=== PATIENT | female | born 1950 | race Caucasian/White ===

== ENCOUNTER 2021-02-08 23:54 | Emergency (ER) | payer OTHER, MEDICARE ==
--- OUTSIDE RECORDS SUMMARY | 2021-02-08 23:55 | XMS REPORT | Continuity of Care Document ---
:1950 Author Organization [facility] t Address [address] [place] [address] Care Team Providers Name Role Phone Unavailable Unavailable Unavailable Payers Payer Name Policy Type Policy Number Effective Date Expiration Date S ource Problems This patient has no known problems. Allergies, Adverse Reactions, Alerts Allergy Allergy Status Severity Reaction(s) Onset Inactive Treating Comm ents Source Name Type Date Date Clinician latex DA Active MO 2019-06 [facility] 0-12 Clear 00:00: [place] [address] [place] [address] Medications This patient has no known medications. Procedures This patient has no known procedures. Encounters Start End Encounter Admission Attending Care Care Encounter Source Date/Time Date/Time Type Type Clinicians Facility Department ID 2021-01-10 2021-01-10 Outpatient MHSE [id number] 10:21:00 10:21:00 [facility] 2021-01-10 2021-01-10 Outpatient MHBL [id number] MHBL 08:42:00 08:42:00 Results Test Description Test Time Test Comments Results Result Comments Source Novel Coronavirus 2019 Inhouse 2020-04-06 10:54:00 Test Item Value Reference Range Interpretation Comme nts Novel Coronavirus 2018 Negative Negative Posit vandana results are indicative of the Inhouse (test code = presenc e [id number] RNA, clinical COVNONPUI) correlation wit h patient historyand other diagnosti c information is necessary to de terminepatient infection status. Positiv e results do not rule outbacterial in fection or co-infection with other viru ses. Negative results do not preclude SA RS-CoV-2 infection andshould not b e used as the sole basis for patient man agementdecisions. Negative result s must be combined with otherclinical o bservations, patient history, and ep idemiologicalinformation. Detection of SA RS-CoV-2 RNA may be affected bysamp le collection methods, storage conditi ons, and/or stageof infection. Teri l RNA mutations, vaccinations, a ntiviraltherapeutics, antibiotics, ch emotherapeutic orimmunosuppres karin drugs have not been evaluated for e ffectson detection. Results are for the identification of SARS-CoV-2 RNA usingthe [employer]. System under th e FDA Emergency UseAuthorizatio n. The testing is performed by fred rsonneltrained in the procedures for the [employer]000 moleculardiagno stic SARS-CoV-2 assay in vitro. Novel Coronavirus 2018 [id number] 10:54:00 Test Item Value Reference Range Interpretation Comments Novel Coronavirus Negative Negative Positive r esults are 2019 Inhouse (test indicativ e of the presence code = COVNONPUI) ofSARS-CoV -2 RNA, clinical correlation wit h patient historyand othe r diagnostic info rmation is necessary to determinepatien t infection status. Positiv e results do not rule out bacterial infection or co -infection with other viru ses. Negative result s do not preclude SARS-C oV-2 infection andsh ould not be used as the ja e basis for patient managementdecis ions. Negative result s must be combined with otherclinical observations, p atient history, and epidemiological information . Detection of SARS-CoV-2 RNA may be affe cted bysample collec tion methods, storag e conditions, and /or stageof infection. Teri l RNA mutations, vacc inations, antiviraltherap eutics, antibiotics, chemotherapeuti c orimmunosuppres karin drugs have not been e valuated for effectson d etection. Results are for the identification of SARS-CoV-2 RNA usingthe [employer] Sy stem under the FDA Emergen cy UseAuthorizatio n. The testing is perf ormed by michael kelley in the procedures for the Koehler M2000 molecular diagnostic SARS-CoV-2 assa y in vitro. - MRI LW JNT W/O CONT [id number] 15:57:00 Patient Name: CHRISTOPHER PARISH Unit No: [id number] EXAMS: CPT CODE: [id number] MRI LW JNT W/[place] [address] TECHNIQUE: Multiplanar, multisequence MRI of the left knee without contrast. COMPARISON: None available. FINDINGS: Menisci: Horizontaltear of the medial meniscus is suspected extending from the posterior horn to the meniscal body. There is subtle increased signal of the free edge of the lateral meniscal body withoutdefinite tear. Ligament and tendons: ACL and PCL are intact. ACL and PCL are intact. Extensor mechanism is unremarkable. Cartilage/ bone: Severe patellofemoral cartilage degeneration is seen throughout the patellofemoral compartment, predominantly within the medial compartment. A full-thickness chondral fissure extends into the lateral patellar facet. Moderate medial compartment cartilage degeneration reaches high-grade peripherally with prominent subchondral edema of the medial femoral condyle. There is also moderate lateral compartment cartilage degeneration with a large button osteophyte of the lateral femoral condyle measuring 14 mm in AP dimension. No acute fracture. Other: Small joint effusion and popliteal cyst are visualized. IMPRESSION: 1. Suspected horizontal tear of the posterior horn and body of the medial meniscus. 2. Tricompartmental cartilage degeneration, most severely involving the patellofemoral compartment. 3. Small joint effusion and popliteal cyst. at 1557 Reported andsigned by: Elliot Harris M.D. CC: Regan Rodriguez MD Technologist: Piotr Montalvo(R) Transcribed D/ (2757) David MCMAHON [facility] NAME: CHRISTOPHER PARISH [address] [facility] PHYS: Regan Espinosa : 1950 AGE: 69 SEX: F [place], [place] [address] LOC: Y.MRI PHONE #: [phone] EXAM DATE: 04/01/2020 STATUS: REG CLI FAX #: [phone] RAD #: D/C DT PAGE 1 Signed Report Patient Name: Anita PARISH No: [id number] EXAMS: CPT CODE: [id number] MRI LW JNT W/[place] [address] <Continued> Orig Print D/T: S: 04/01/2020 (1600) [facility] NAME: CHRISTOPHER PARISH [address] [place] [address] PHYS: Regan Espinosa : 1950 AGE:69 SEX: F [place] [address] LOC: Y.MRI PHONE #: [phone] EXAM DATE: 04/01/2020 STATUS: REG CLI FAX #: [phone] RAD #: D/C DT PAGE 2 Signed Report- XR L-SPINE W/BEND [id number] 14:47:00 Patient Name: CHRISTOPHER PARISH Unit No: [id number] EXAMS: CPT CODE: [id number] XR L-SPINE W/BEND VIEW 79676 LUMBAR SPINE 5 VIEWS PLUS FLEXION AND EXTENSION COMMENT: COMPARISON: No prior exams available. There is a scoliosis convex right. Vertebral body heights are maintained. Interspace narrowing and endplate degenerative change is present from L3 to S1. There is no evidence for abnormal motion with flexion and extension. at 1447 Reported and signed by: Mehdi Lees MD CC: Isreal Price MD Technologist: Tiffanie Pickard RT.(R) Transcribed D/ (1768) Bing [facility] [place] [facility] NAME: CHRISTOPHER PARISH [address] [place] [address] PHYS: ADDIUD - sIreal Price MD :1950 AGE: 68 SEX: F [place] [address] LOC: Y.MRI PHONE #: [phone] EXAM DATE: 03/06/2019 STATUS: DEP CLI FAX #: [phone] RAD #: D/C DT PAGE 1 Signed Report Patient Name: CHRISTOPHER PARISH Unit No: [id number] EXAMS: CPT CODE: [id number] XR L-SPINE W/BEND VIEW 82389 <Continued> Orig Print D/T: S: 03/07/2019 (1450) [facility] [place] [facility] NAME: CHRISTOPHER PARISH [address] [facility] PHYS: DOCUD - Doctor,Isreal Newberry MD : 1950 AGE: 68 SEX: F [place], [place] [address] LOC: Y.MRI PHONE #: [phone] EXAM DATE: 03/06/2019 STATUS: DEP CLI FAX #: [phone] RAD #: D/C DT PAGE 2 Signed Report- MRI L-SPINE W/O CONT 2019-03-07 08:57:00 Patient Name: CHRISTOPHER PARISH Unit No: [id number] EXAMS: CPT CODE: [id number] MRI L-SPINE W/O CONT 74918 DIAGNOSIS: 1. At L1-2 there is no evidence for disc bulge or herniation, bony canal or foraminal stenosis. 2. At L2-3 there is no evidence for disc bulge or herniation, bony canal or foraminal stenosis. 3. At L3-4 there is no evidence for discbulge or herniation. There is mild narrowing of the central canal due to facet hypertrophic and degenerative change. 4. At L4-5 there is no evidence for disc bulge or herniation. There is mild narrowing of the canal and foramina with facet and ligamentum flavum hypertrophic and degenerative change. 5. At L5-S1 there is no evidence for disc bulge or herniation, bony canal or foraminal stenosis. COMMENT: COMPARISON: No prior exams available. Scans were performed in the sagittal and axial planes utilizing T1, T2 and inversion recovery images. There is a small hemangioma of bone in L1. All discs are desiccated. There is a mild upper lumbar scoliosis convex right. Disc configurations are as described. Spondylitic changes are as noted. The conus is in the expected location. The description these findings assumes a normal count of 5 lumbar type vertebra. at 0857 Reported and signed by: Mehdi Lees MD CC: Isreal Price MD Technologist: CHANTE DUTTA MRI Transcribed D/ (0857) Bing [facility] [place] [facility] NAME: CHRISTOPHER PARISH [address] [facility] PHYS : Isreal Adams MD : 1950 AGE: 68 SEX: F [place] [address] LOC: Y.MRI PHONE #: [phone] EXAM DATE: 03/06/2019 STATUS: DEP CLI FAX #: [phone] RAD #: D/C DT PAGE 1 Signed Report Patient Name: CHRISTOPHER PARISH Unit No: [id number] EXAMS: CPT CODE: [id number] MRI L-SPINE W/O CONT 10594 <Continued> Orig Print D/T: S: 03/07/2019 (0900) [facility] [place] [facility] NAME: CHRISTOPHER PARISH [address] [place] [address] PHYS: Isreal Adams MD : 1950 AGE: 68 SEX: F [place] [address] LOC: Y.MRI PHONE #: [phone] EXAM DATE: 03/06/2019 STATUS: DEP CLI FAX #: [phone] RAD #: D/C DT PAGE 2 Signed Report
[2021-02-09] MEDS ORDERED: NA CHLORIDE 0.9% 1,000 ML ONE (02:32)
[2021-02-09] MEDS ORDERED: KETOROLAC 30 MG/ML INJ ONE (02:32)
[2021-02-09] MEDS ORDERED: DIPHENHYDRAMINE 50 MG/ML VIAL ONE (02:32)
[2021-02-09] MEDS ORDERED: METOCLOPRAMIDE 10 MG/2mL INJ ONE (02:32)
--- NOTE | 2021-02-09 02:47 | ER ---
Nurse's Notes [facility] Name: Meg Man Age: 70 yrs Sex: Female : 1950 Arrival Date: 02/08/2021 Time: 23:56 Bed 26 Private MD: Diagnosis: Headache Presentation: 02/09 01:39 Chief complaint: Patient states: she had a fall last year with a TBI and she is seeing bb a neurologist but it has caused severe headaches which she is having now since 1999 and nothing is helping. Coronavirus screen: At this time, the client does not indicate any symptoms associated with coronavirus-19. Ebola Screen: No symptoms or risks identified at this time. Initial Sepsis Screen: Does the patient meet any 2 criteria? No. Patient's initial sepsis screen is negative. Does the patient have a suspected source of infection? No. Patient's initial sepsis screen is negative. Risk Assessment: Do you want to hurt yourself or someone else? Patient reports no desire to harm self or others. Onset of symptoms was February 08, 2021. 01:39 Method Of Arrival: Ambulatory 01:39 Acuity: ARCENIO 3 Triage Assessment: 01:42 Headache History: The patient has had previous headaches and this one is similar to bb previous episodes. General: Appears in no apparent distress. uncomfortable, Behavior is cooperative, anxious. Pain: Complains of pain in headache Pain currently is 8 out of 10 on a pain scale. Pain began suddenly, Also complains of sleeplessness. Neuro: Level of Consciousness is awake, alert, obeys commands, Oriented to person, place, time, situation. Cardiovascular: Capillary refill < 3 seconds Patient's skin is warm and dry. Respiratory: Respiratory effort is unlabored. GI: No signs and/or symptoms were reported involving the gastrointestinal system. Derm: Skin is pink, warm \T\ dry. Musculoskeletal: Circulation, motion, and sensation intact. Historical: - Allergies: :42 No Known Allergies; bb - Home Meds: :42 ubrelvy [Active]; levothyroxine oral [Active]; pantoprazole oral [Active]; duloxetine bb oral [Active]; - PMHx: 01:42 GERD; hiatal hernia; Hypothyroidism; Depressive disorder; bb - PSHx: 01:42 foot surgery; L knee; L shoulder replacement; Tonsillectomy; cervical fusion; deviated bb septum; - Immunization history:: Adult Immunizations up to date, Client reports receiving the 2nd dose of the Covid vaccine. - Social history:: Smoking status: Patient denies any tobacco usage or history of. Screenin:30 Abuse screen: Denies threats or abuse. Nutritional screening: No deficits noted. bb Tuberculosis screening: No symptoms or risk factors identified. Fall Risk None identified. Assessment: 02:30 Reassessment: No changes from previously documented assessment. Patient is alert, bb oriented x 3, equal unlabored respirations, skin warm/dry/pink. see triage assessment. 03:57 Reassessment: Patient is alert, oriented x 3, equal unlabored respirations, skin bb warm/dry/pink. pt verbalized understanding of and agrees to plan of care discharge instructions given pt ambulated with steady gait to exit Patient states feeling better. Patient states symptoms have improved. Vital Signs: 01:39 BP 153 / 92; Pulse 84; Resp 16 S; Temp 98.7(O); Pulse Ox 100% on R/A; Weight 104.33 kg bb (R); Height 5 ft. 8 in. (172.72 cm) (R); Pain 10/10; 03:58 BP 147 / 80; Pulse 78; Resp 16 S; Pulse Ox 95% on R/A; Pain 0/10; bb 01:39 Body Mass Index 34.97 (104.33 kg, 172.72 cm) bb Richard Coma Score: 02:11 Eye Response: spontaneous(4). Verbal Response: oriented(5). Motor Response: obeys kb commands(6). Total: 15. ED Course: 02/08 23:56 Patient arrived in ED. bp1 02/09 01:42 Triage completed. bb 01:42 Arm band placed on Patient placed in waiting room, Patient notified of wait time. bb 01:53 Paulina Tucker FNP-C [facility]. kb 01:53 Rudy Foley MD is Attending Physician. kb 02:02 Inserted saline lock: 20 gauge in right wrist, using aseptic technique. Missed bb attempt(s): 20 gauge in right hand. Bleeding controlled, band aid applied, catheter tip intact. 02:29 Jeannine Zelaya RN is Primary Nurse. bb 02:30 Patient has correct armband on for positive identification. Call light in reach. bb 03:58 No provider procedures requiring assistance completed. IV discontinued, intact, bb bleeding controlled, No redness/swelling at site. Pressure dressing applied. Administered Medications: 02:19 Drug: NS 0.9% 1000 ml Route: IV; Rate: 1000 ml; Site: right wrist; bb 03:30 Follow up: IV Status: Completed infusion bb 02:19 Drug: Ketorolac 30 mg Route: IVP; Site: right wrist; bb 03:48 Follow up: Response: No adverse reaction; Marked relief of symptoms bb 02:20 Drug: Benadryl (diphenhydrAMINE) 12.5 mg Route: IVP; Site: right wrist; bb 03:48 Follow up: Response: No adverse reaction; Marked relief of symptoms bb 02:20 Drug: Reglan (metoCLOPramide) 10 mg Route: IVP; Site: right wrist; bb 03:48 Follow up: Response: No adverse reaction; Marked relief of symptoms bb 03:47 Drug: [place] (HYDROcodone-acetaminophen) (7.5 mg-325 mg) 1 tabs {Note: RASS 0.} Route: bb PO; 03:57 Follow up: Response: Medication administered at discharge. bb Outcome: 02:47 Discharge ordered by . kb 03:59 Discharged to home ambulatory, with family. bb 03:59 Condition: stable 03:59 Discharge instructions given to patient, Instructed on discharge instructions, follow up and referral plans. Demonstrated understanding of instructions, follow-up care. 03:59 Patient left the ED. bb Signatures: Paulina Tucker, LIZETTE WEBB-Jeannine Isidro RN RN bb iTa Jones bp1
--- NOTE | 2021-02-09 02:48 | EDPHYS ---
Physician Documentation [facility] Name: Meg Man Age: 70 yrs Sex: Female : 1950 Arrival Date: 02/08/2021 Time: 23:56 Bed 26 Private MD: LORIN Physician Rudy Foley HPI: 02/09 02:11 This 70 yrs old Female presents to ER via Ambulatory with complaints of kb Headache. 02:15 The patient complains of pain to the top of head and right mosque. The patient kb describes the headache as constant. Onset: The symptoms/episode began/occurred yesterday. Associated signs and symptoms: Pertinent positives: nausea. Severity of symptoms: At its worst the pain was moderate, in the emergency department the pain is unchanged. Headache History: The patient has had previous headaches and this one is similar to previous episodes. The symptoms are alleviated by nothing. the symptoms are aggravated by nothing. The patient has experienced similar episodes in the past. The patient has not recently seen a physician. Pt reports she fell 1 year ago and got a concussion. States she has been diagnosed with postconcussive syndrome. Reports headaches approximately once per month similar to the one she has now that she normally takes a migraine medication for and it goes away but today's did not. States pain is always to right mosque and top of head. Patient denies any changes in the characteristics of this headache in comparison to previous headaches.. Historical: - Allergies: 01:42 No Known Allergies; bb - Home Meds: 01:42 ubrelvy [Active]; levothyroxine oral [Active]; pantoprazole oral [Active]; duloxetine bb oral [Active]; - PMHx: 01:42 GERD; hiatal hernia; Hypothyroidism; Depressive disorder; bb - PSHx: 01:42 foot surgery; L knee; L shoulder replacement; Tonsillectomy; cervical fusion; deviated bb septum; - Immunization history:: Adult Immunizations up to date, Client reports receiving the 2nd dose of the Covid vaccine. - Social history:: Smoking status: Patient denies any tobacco usage or history of. ROS: 02:12 Constitutional: Negative for fever, chills, and weight loss. kb 02:12 Abdomen/GI: Positive for nausea. 02:12 Neuro: Positive for headache. 02:12 All other systems are negative. Exam: 02:12 Constitutional: This is a well developed, well nourished patient who is awake, alert, kb and in no acute distress. Head/Face: Normocephalic, atraumatic. Eyes: Pupils equal round and reactive to light, extra-ocular motions intact. Lids and lashes normal. Conjunctiva and sclera are non-icteric and not injected. Cornea within normal limits. Periorbital areas with no swelling, redness, or edema. ENT: Moist Mucous membranes Respiratory: Respirations even and unlabored. No increased work of breathing, no retractions or nasal flaring. Skin: Warm, dry with normal turgor. Normal color. MS/ Extremity: Pulses equal, no cyanosis. Neurovascular intact. Full, normal range of motion. Neuro: Awake and alert, GCS 15, oriented to person, place, time, and situation. Moves all extremities. Normal gait. Psych: Awake, alert, with orientation to person, place and time. Behavior, mood, and affect are within normal limits. Vital Signs: 01:39 BP 153 / 92; Pulse 84; Resp 16 S; Temp 98.7(O); Pulse Ox 100% on R/A; Weight 104.33 kg bb (R); Height 5 ft. 8 in. (172.72 cm) (R); Pain 10/10; 03:58 BP 147 / 80; Pulse 78; Resp 16 S; Pulse Ox 95% on R/A; Pain 0/10; bb 01:39 Body Mass Index 34.97 (104.33 kg, 172.72 cm) bb [place] Coma Score: 02:11 Eye Response: spontaneous(4). Verbal Response: oriented(5). Motor Response: obeys kb commands(6). Total: 15. MDM: 01:53 Patient medically screened. kb 02:11 Data reviewed: vital signs, nurses notes. Data interpreted: Pulse oximetry: on room air kb is 100 %. Interpretation: normal. Counseling: I had a detailed discussion with the patient and/or guardian regarding: the historical points, exam findings, and any diagnostic results supporting the discharge/admit diagnosis, the need for outpatient follow up, a neurologist, to return to the emergency department if symptoms worsen or persist or if there are any questions or concerns that arise at home. 02:46 Response to treatment: the patient's symptoms have markedly improved after treatment. kb 02/09 01:55 Order name: IV Start; Complete Time: 02:02 kb Administered Medications: 02:19 Drug: NS 0.9% 1000 ml Route: IV; Rate: 1000 ml; Site: right wrist; bb 03:30 Follow up: IV Status: Completed infusion bb 02:19 Drug: Ketorolac 30 mg Route: IVP; Site: right wrist; bb 03:48 Follow up: Response: No adverse reaction; Marked relief of symptoms bb 02:20 Drug: Benadryl (diphenhydrAMINE) 12.5 mg Route: IVP; Site: right wrist; bb 03:48 Follow up: Response: No adverse reaction; Marked relief of symptoms bb 02:20 Drug: Reglan (metoCLOPramide) 10 mg Route: IVP; Site: right wrist; bb 03:48 Follow up: Response: No adverse reaction; Marked relief of symptoms bb 03:47 Drug: [place] (HYDROcodone-acetaminophen) (7.5 mg-325 mg) 1 tabs {Note: RASS 0.} Route: bb PO; 03:57 Follow up: Response: Medication administered at discharge. bb Disposition: 07:37 Co-signature as Attending Physician, Rudy Foley MD I agree with the assessment and milla plan of care. Disposition Summary: 02/09/21 02:47 Discharge Ordered Location: Home kb Condition: Stable kb Diagnosis - Headache kb Followup: kb - With: Emergency Department - When: As needed - Reason: Worsening of condition Followup: kb - With: Private Physician - When: 2 - 3 days - Reason: Recheck today's complaints, Continuance of care, Re-evaluation by your physician Discharge Instructions: - Discharge Summary Sheet kb - Post-Concussion Syndrome, [id number] kb Forms: - Medication Reconciliation Form kb - Thank You Letter kb - Antibiotic Education kb - Prescription Opioid Use kb Signatures: Paulina Tucker, TILE LAYER HELPER-C TILE LAYER HELPER-Rudy Joshi MD MD cha Ballard, Brenda, RN RN bb
[2021-02-09 04:08] VITALS: TEMP 98.7
[2021-02-09 04:10] VITALS: BP 147/80; O2SAT 95
[2021-02-09] MEDS ORDERED: HYDROCODONE/APAP 7.5/325 MG TAB ONE (04:13)
== END 2021-02-09 03:59 | disposition home or self-care (01) ==
LOC: ER 23:54
DX: R51.9 Headache, unspecified (principal); E03.9 Hypothyroidism, unspecified; F32.9 Major depressive disorder, single episode, unspecified
CPT/HCPCS: 96361; 96375; 96374; 99283; J2765; J1200; J7030

== ENCOUNTER → 2023-08-09 | Emergency (ER) | payer OTHER, MEDICARE ==
[~2023-08-09] MED LIST: LOPERAMIDE HCL 2 MG CAPSULE ONE; NA CHLORIDE 0.9% 1,000 ML ONE; ONDANSETRON 4 MG/2 ML VIAL ONE; hydrOXYzine HCL 25 MG TAB ONE
[2023-08-09 16:59] LABS: Absolute Lymphocytes (CBC) 1.3 K/uL (0.7-4.9); Hematocrit 45.7 % (36.0-45.0); Lymphocytes % 17.9 % (15.3-44.8); MCV 87.9 fL (80-100); MPV 9.3 fL (7.6-11.3); Platelets 222 thou/uL (152-406)
[2023-08-09 17:21] LABS: Specific Gravity 1.021 (1.005-1.030); Urine Bacteria <20 /HPF (<20); Urine Bilirubin NEGATIVE (Negative); Urine Blood Negative (Negative); Urine Clarity Extremely Turbid (Clear); Urine Color Yellow (Yellow); Urine Crystals Unidentified Few /HPF (None Seen); Urine Glucose NEGATIVE (Negative); Urine Mucus Slight /HPF (None Seen); Urine Protein TRACE (Negative); Urine RBC <5 /HPF (None Seen); Urine Urobilinogen Normal (Normal); Urine pH 5.5 (5.0-7.0)
[2023-08-09 18:31] LABS: Potassium 3.9 mEq/L (3.5-5.1)
[2023-08-09 18:32] LABS: Albumin 2.9 g/dL (3.4-5.0); Bilirubin Total 0.5 mg/dL (0.2-1.0); Protein, Total 6.8 g/dL (6.4-8.2)
--- NOTE | 2023-08-09 19:12 | RAD REPORT ---
EXAM DESCRIPTION: CTAbdomen Pelvis W Contrast - 08/09/2023 7:04 pm CLINICAL HISTORY: Abdominal pain. ABD PAIN COMPARISON: Abdomen Pelvis W Contrast dated 04/06/2021 TECHNIQUE: Biphasic CT imaging of the abdomen and pelvis was performed with 100 ml non-ionic IV cont rast. All CT scans are performed using dose optimization technique as appropriate and may include automated exposure control or mA/KV adjustment according to patient size. FINDINGS: The lung bases are clear. The liver, spleen, pancreas, adrenal glands and kidneys are within normal limits. No bowel obstruction, free air, free fluid or abscess. The appendix is normal. No evidence of signi ficant lymphadenopathy. Right total hip arthroplasty. IMPRESSION: No acute intra-abdominal or pelvic finding.
--- NOTE | 2023-08-09 20:23 | ER ---
Nurse's Notes [facility] Name: Meg Man Age: 72 yrs Sex: Female : 1950 Arrival Date: 08/09/2023 Time: 14:09 Bed 14 Private MD: Diagnosis: Diarrhea, unspecified Presentation: 08/09 14:26 Chief complaint: Patient states: N/V/D for 4 days. + itching all over, Benadryl not ll1 helping. No fever. Worried about having Giardia again. Coronavirus screen: Client denies travel out of the [place] in the last 14 days. At this time, the client does not indicate any symptoms associated with coronavirus-19. Ebola Screen: Patient denies travel to an Ebola-affected area in the 21 days before illness onset. Initial Sepsis Screen: Does the patient meet any 2 criteria? No. Patient's initial sepsis screen is negative. Does the patient have a suspected source of infection? No. Patient's initial sepsis screen is negative. Risk Assessment: Do you want to hurt yourself or someone else? Patient reports no desire to harm self or others. Onset of symptoms was August 06, 2023. 14:26 Method Of Arrival: Wheelchair ll1 14:26 Acuity: ARCENIO 3 ll1 Triage Assessment: 14:28 General: Appears uncomfortable, ill, Behavior is calm, cooperative, appropriate for ll1 age. Respiratory: Reports shortness of breath. GI: Reports diarrhea, nausea, vomiting. 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 - Social history:: Smoking status: Patient denies any tobacco usage or history of. Screenin:25 [facility] ED Fall Risk Assessment (Adult) History of falling in the last 3 months, rs5 including since admission No falls in past 3 months (0 pts) Confusion or Disorientation No (0 pts) Intoxicated or Sedated No (0 pts) Impaired Gait No (0 pts) Mobility Assist Device Used No (0 pt) Altered Elimination No (0 pt) Score/Fall Risk Level 0 - 2 = Low Risk Oriented to surroundings, Maintained a safe environment. Abuse screen: Denies threats or abuse. Nutritional screening: No deficits noted. Tuberculosis screening: No symptoms or risk factors identified. Assessment: 14:25 General: Appears in no apparent distress. uncomfortable, Behavior is calm, cooperative. rs5 Pain: Complains of pain in abdomen Pain does not radiate. Pain currently is 5 out of 10 on a pain scale. Quality of pain is described as aching, Is continuous. 14:25 Neuro: Level of Consciousness is awake, alert, obeys commands, Oriented to person, rs5 place, time, situation. Cardiovascular: Patient's skin is warm and dry. Rhythm is regular. Respiratory: Airway is patent Respiratory effort is even, unlabored, Respiratory pattern is regular, symmetrical. GI: Abdomen is round non-distended, Bowel sounds present X 4 quads. Abd is soft and non tender. : No signs and/or symptoms were reported regarding the genitourinary system. EENT: No signs and/or symptoms were reported regarding the EENT system. Derm: Skin is intact, Skin is pink, warm \T\ dry. Musculoskeletal: Range of motion: intact in all extremities. 16:16 Reassessment: No changes from previously documented assessment. Patient and/or family rs5 updated on plan of care and expected duration. Pain level reassessed. 16:16 GI: Patient currently denies nausea. rs5 19:17 Reassessment: Patient is alert, oriented x 3, equal unlabored respirations, skin jj7 warm/dry/pink. PT BACK IN ROOM FROM CT. ASSUMED CARE OF PT. PT LYING IN BED. STATES THE ABD IS SLOWLY STARTING TO COME BACK. NO NEEDS AT THIS TIME. VS STABLE. FAMILY AT BEDSIDE. CALL STOLL IN REACH. Vital Signs: 14:26 BP 120 / 78; Pulse 93; Resp 17; Temp 97.4; Pulse Ox 99% on R/A; ll1 19:17 BP 103 / 56; Pulse 105; Resp 19; Pulse Ox 99% ; jj7 20:15 BP 102 / 56; Pulse 86; Resp 17; Pulse Ox 95% ; jj7 ED Course: 14:11 Patient arrived in ED. rg4 14:13 Arm band placed on. ll1 14:17 Olga Rodriguez PA-C is PHCP. sb4 14:17 Calixto Faith MD is Attending Physician. sb4 14:25 Patient has correct armband on for positive identification. Bed in low position. Call rs5 light in reach. Side rails up X2. 14:25 No provider procedures requiring assistance completed. rs5 14:28 Triage completed. ll1 16:16 Patient placed in an exam room, on a stretcher. iw 16:18 Angel Luis Lowe, RN is Primary Nurse. rs5 19:06 CT Abd/Pelvis - IV Contrast Only In Process Unspecified. EDMS 20:37 IV discontinued, intact, bleeding controlled, No redness/swelling at site. Pressure jj7 dressing applied. Administered Medications: 16:30 Drug: NS 0.9% IV 1000 ml IV at 1 bolus Per protocol; 1000 mL bolus Route: IV; Rate: 1 rs5 bolus; Site: left hand; 20:37 Follow up: IV Status: Completed infusion jj7 18:50 Drug: Ondansetron IVP 4 mg IVP once; over 2 minutes Route: IVP; Site: right antecubital;rs5 20:50 Follow up: Response: Nausea is decreased jj7 20:10 Drug: NS 0.9% IV 1000 ml IV at 1 bolus Per protocol; 1000 mL bolus Route: IV; Rate: 1 jj7 bolus; Site: left antecubital; 20:37 Follow up: IV Status: Completed infusion; IV Intake: 300ml jj7 20:11 Drug: Loperamide PO 4 mg PO once Route: PO; jj7 20:51 Follow up: Response: No adverse reaction jj7 20:37 Drug: hydrOXYzine PO 50 mg PO once Route: PO; jj7 20:51 Follow up: Response: No adverse reaction jj7 Medication: 14:25 VIS not applicable for this client. rs5 Intake: 20:37 IV: 300ml; Total: 300ml. jj7 Outcome: 20:23 Discharge ordered by . sb4 20:37 Discharged to home ambulatory, with family, jj7 20:37 Condition: improved 20:37 Discharge instructions given to patient, family, Instructed on discharge instructions, medication usage, DIET Demonstrated understanding of instructions, medications, DIET Prescriptions given X 3, 20:55 Patient left the ED. jj7 Signatures: Dispatcher [employer] EDRima Leary RN RN iw Pauline Cisneros rg4 Jada Velez RN RN ll1 Armando Galo RN RN jj7 Olga Rodriguez, PAVinhC PA-C sb4 Angel Luis Lowe, RN RN rs5 Corrections: (The following items were deleted from the chart) 14:29 14:26 Chief complaint: Patient states: N/V/D for 4 days. + itching all over. No fever ll1 ll1 18:59 16:16 Reassessment: No changes from previously documented assessment. Patient and/or rs5 family updated on plan of care and expected duration. Pain level reassessed. iw
--- NOTE | 2023-08-09 20:24 | EDPHYS ---
Physician Documentation [facility] Name: Meg Man Age: 72 yrs Sex: Female : 1950 Arrival Date: 08/09/2023 Time: 14:09 Bed 14 Private MD: ED Physician Calixto Faith HPI: 08/09 14:36 This 72 yrs old Female presents to ER via Wheelchair with complaints of Diarrhea. sb4 14:36 Patient reports diarrhea for 3 days. She states that it feels exactly like when she had sb4 giardia at 37 years ago. She additionally complains of itching all over her body without significant improvement with Benadryl. She denies any fever. Does endorse some vomiting and some abdominal pain, though not as severe as her diarrhea. She describes her diarrhea as watery, malodorous and a ordonez color. No blood in her diarrhea. She denies any recent changes in medication. She was started on metronidazole by her PCP yesterday. She has been on semaglutide, her dose was doubled 5 days ago. 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 - Social history:: Smoking status: Patient denies any tobacco usage or history of. ROS: 14:36 Constitutional: Negative for fever, chills, and weight loss, sb4 14:36 Abdomen/GI: Positive for nausea, vomiting, and diarrhea, 14:36 Skin: Positive for itching, 14:36 All other systems are negative, Exam: 14:36 Constitutional: This is a well developed, well nourished patient who is awake, alert, sb4 and in no acute distress. Head/Face: Normocephalic, atraumatic. Eyes: Extra-ocular motions intact. Periorbital areas with no swelling, redness, or edema. ENT: Mucous membranes moist. Cardiovascular: Regular rate and rhythm with a normal S1 and S2. Respiratory: Lungs have equal breath sounds bilaterally, clear to auscultation and percussion. No rales, rhonchi or wheezes noted. No increased work of breathing, no retractions or nasal flaring. Abdomen/GI: Soft, non-tender, no distension. Skin: Warm, dry with normal turgor. Normal color with no rashes, no lesions, and no evidence of cellulitis. MS/ Extremity: Pulses equal, no cyanosis. Neurovascular intact. Full, normal range of motion. Neuro: Awake and alert, GCS 15, oriented to person, place, time, and situation. Motor strength 5/5 in all extremities. Sensory grossly intact. Vital Signs: 14:26 BP 120 / 78; Pulse 93; Resp 17; Temp 97.4; Pulse Ox 99% on R/A; ll1 19:17 BP 103 / 56; Pulse 105; Resp 19; Pulse Ox 99% ; jj7 20:15 BP 102 / 56; Pulse 86; Resp 17; Pulse Ox 95% ; jj7 MDM: 14:25 Patient medically screened. sb4 14:36 Differential diagnosis: gastroenteritis, colitis, parasitic infection, diverticulitis. sb4 20:23 Data reviewed: vital signs, nurses notes, lab test result(s), radiologic studies, and sb4 as a result, I will discharge patient. Consideration of Admission/Observation Escalation of care including admission/observation considered. Historians other than the Patient: Spouse/Significant Other: . Counseling: I had a detailed discussion with the patient and/or guardian regarding the historical points, exam findings, and any diagnostic results supporting the discharge/admit diagnosis, lab results, radiology results, to return to the emergency department if symptoms worsen or persist or if there are any questions or concerns that arise at home. 08/09 14:31 Order name: CBC with Diff; Complete Time: 17:18 sb4 08/09 14:31 Order name: CMP; Complete Time: 18:32 sb4 08/09 14:31 Order name: Lipase; Complete Time: 18:32 sb4 08/09 14:31 Order name: Urinalysis w/ reflexes; Complete Time: 17:23 sb4 08/09 14:31 Order name: Fecal Leukocyte Stain; Complete Time: 15:20 sb4 08/09 14:31 Order name: Ova And Parasites sb4 08/09 14:31 Order name: Rotavirus Antigen; Complete Time: 19:42 sb4 08/09 14:31 Order name: Stool Culture sb4 08/09 17:25 Order name: Urine Culture [facility] 08/09 14:31 Order name: CT Abd/Pelvis - IV Contrast Only; Complete Time: 19:14 sb4 08/09 14:31 Order name: IV Saline Lock; Complete Time: 17:20 sb4 08/09 14:31 Order name: Labs collected and sent; Complete Time: 17:20 sb4 08/09 16:55 Order name: Labs - recollect needed: green top; Complete Time: 16:57 ds4 Administered Medications: 16:30 Drug: NS 0.9% IV 1000 ml IV at 1 bolus Per protocol; 1000 mL bolus Route: IV; Rate: 1 rs5 bolus; Site: left hand; 20:37 Follow up: IV Status: Completed infusion jj7 18:50 Drug: Ondansetron IVP 4 mg IVP once; over 2 minutes Route: IVP; Site: right antecubital;rs5 20:50 Follow up: Response: Nausea is decreased jj7 20:10 Drug: NS 0.9% IV 1000 ml IV at 1 bolus Per protocol; 1000 mL bolus Route: IV; Rate: 1 jj7 bolus; Site: left antecubital; 20:37 Follow up: IV Status: Completed infusion; IV Intake: 300ml jj7 20:11 Drug: Loperamide PO 4 mg PO once Route: PO; jj7 20:51 Follow up: Response: No adverse reaction jj7 20:37 Drug: hydrOXYzine PO 50 mg PO once Route: PO; jj7 20:51 Follow up: Response: No adverse reaction jj7 Disposition Summary: 08/09/23 20:23 Discharge Ordered Notes: Location: Home sb4 Problem: new sb4 Symptoms: have improved sb4 Condition: Stable sb4 Diagnosis - Diarrhea, unspecified sb4 Followup: sb4 - With: Emergency Department - When: As needed - Reason: Trouble breathing, Worsening of condition Discharge Instructions: - Discharge Summary Sheet sb4 - Food Choices to Help Relieve Diarrhea, Adult sb4 Forms: - Medication Reconciliation Form sb4 - Thank You Letter sb4 - Antibiotic Education sb4 - Prescription Opioid Use sb4 - Patient Portal Instructions sb4 - Leadership Thank You Letter sb4 Prescriptions: - Imodium A-D 2 mg Oral tablet - take 1 tablet ORAL route every 3 hours administer after each loose stool until sb4 symptoms controlled; do not exceed 8 mg per 24 hrs; 20 tablet; Refills: 0, Product Selection Permitted - Hydroxyzine HCl 50 mg Oral Tablet - take 1 tablet ORAL route every 8 hours As needed; 20 tablet; Refills: 0, sb4 Product Selection Permitted - Zofran 4 mg Oral Tablet - take 1 tablet ORAL route every 12 hours As needed; 20 tablet; Refills: 0, sb4 Product Selection Permitted Addendum: 08/10/2023 23:26 I was immediately available for consultation during this patient's visit. I did not e c2 personally see the patient or discuss the patient with the PREM. . Signatures: Dispatcher [employer] Neil Turcios ds4 Jada Velez RN RN ll1 Armando Galo RN RN jj7 Olga Rodriguez PA-C PA-C sb4 Angel Luis Lowe RN RN rs5 Calixto Faith MD MD ec2
[2023-08-09 21:21] VITALS: BP 102/56; TEMP 97.4; O2SAT 95
== END ==
LOC: ER 14:09
DX: R19.7 Diarrhea, unspecified (principal)
CPT/HCPCS: 96361; 87088; 87045; 85025; 81001; 87086; 36415; 89055; 87177; 87046; 87209; 87077; 87186; 83690; 80053; 87425; 74177; 96374; 99284; Q9967; J2405; J7030 ×2